=== PATIENT | male | born 1945 | race Hispanic/Latino ===

== ENCOUNTER 2023-02-19 06:51 | Day surgery (SDC) | payer OTHER ==
[2023-02-18 15:08] VITALS: BP 186/92; PULSE 54; RESP 18
[2023-02-19] VITALS (10 sets, daily range): BP systolic 101–159; BP diastolic 52–94; PULSE 46–89; RESP 14–16
[~2023-02-19] VITALS: Ht 165.1 cm; Wt 119.5 kg
[~2023-02-19 06:51] MED LIST: 0.9%NACL 1000ML 1,000 ML IV ONE; AMLO-258 PO; LISI40TA9 PO; ROSU20TA73 PO
[2023-02-19] MEDS ORDERED: PROPOFOL 10 MG/ML 20ML VIAL IV ONE (09:40)
== END 2023-02-19 11:10 | disposition home or self-care (01) ==
LOC: DAH 06:51 → ENDO 06:51
PROVIDERS: ATTEND Internal Medicine
DX: R10.11 Right upper quadrant pain (principal); K29.00 Acute gastritis without bleeding; B96.81 Helicobacter pylori [H. pylori] as the cause of diseases classified elsewhere; K31.89 Other diseases of stomach and duodenum; I10 Essential (primary) hypertension; K76.0 Fatty (change of) liver, not elsewhere classified; Z72.89 Other problems related to lifestyle
CPT/HCPCS: 43239; J7030 ×2; J2704; A4620; A4215 ×2; A4223; A7002; A4222; A4221; A4663; A4216; A4606; J3490